=== PATIENT | male | born 1935 | race Caucasian/White ===

== ENCOUNTER 2017-09-12 10:45 | Emergency (ER) | payer OTHER, MEDICARE ==
--- NOTE | 2017-09-12 10:52 | EDPHY ---
H & P Stated Complaint: wednesday/st/chills/then developed l facial droop/paralysis Time Seen by Provider: 09/12/17 10:52 - Personal History Current Tetanus/Diphtheria Vaccine: Yes Tetanus Vaccine Date: < 10 YEARS - Medical/Surgical History Hx Asthma: No Hx Chronic Respiratory Disease: No Hx Diabetes: No Hx Cardiac Disease: No Hx Renal Disease: No Hx Cirrhosis: No Hx Alcoholism: No Hx HIV/AIDS: No Hx Splenectomy or Spleen Trauma: No Other PMH: KIDNEY STONES., hemmorhoids - Social History Smoking Status: Never smoked Constitutional: Initial Vital Signs Heart Rate 82 09/12/17 10:47 Respiratory Rate 18 09/12/17 10:47 Blood Pressure 151/93 H 09/12/17 10:47 O2 Sat (%) 98 09/12/17 10:47 O2 Delivery Mode Room Air Allergies/Adverse Reactions: No Known Allergies Allergy (Verified 09/12/17 10:47) Home Medications: Medication Instructions Recorded Valacyclovir HCl [Valtrex] 1,000 mg PO TID #21 tab 09/12/17 predniSONE 40 mg PO DAILY #14 tab 09/12/17 Medical Decision Making ED Course/Re-evaluation: CHIEF COMPLAINT: Left facial droop HISTORY OF PRESENT ILLNESS: The patient is an 82 y/o male with minimal medical history who presents with left facial droop progressing over the last 24 hours. He noticed chills on Wednesday, 2 days ago, and yesterday had a mild sore throat and slight blur of the vision in his left eye. Today he was playing tennis with his friend who noticed left facial droop. The patient also reports inability to close his left eyelid and mentions food getting stuck in the left side of his mouth this morning. He denies any weakness elsewhere, paresthesias, headache, speech difficulty, confusion, fever, recent trauma, or other complaints. REVIEW OF SYSTEMS: A 10 point review of systems was performed and is negative with the exception of the elements mentioned in the history of present illness. PHYSICAL EXAM: HR, BP, O2 Sat, RR. Temp noted General Appearance: Alert, well hydrated, appropriate, and non-toxic appearing. Asymmetry left facial droop. Head: Atraumatic without scalp tenderness or obvious injury Eyes: Pupils equal, round, reactive to light and accommodation, EOMI, no trauma , no injection. Unable to close left eyelid complete. Nose: Atraumatic, no rhinorrhea, clear. Throat: Mucus membranes moist. Neck: Supple, nontender, no lymphadenopathy. Respiratory: No retractions, no distress, no wheezes, and no accessory muscle use. Lungs are clear to auscultation bilaterally. Cardiovascular: Regular rate and rhythm, no murmurs, rubs, or gallops. Good capillary refill all extremities. Gastrointestinal: Abdomen is soft, nontender, non-distended, no masses, no rebound, no guarding, no peritoneal signs. Musculoskeletal: Normal active ROM of all extremities, atraumatic. Neurological: Alert, appropriate, and interactive. Faulkner's palsy phenomenon left side, unable to close left eyelid completely, left mouth droop. Otherwise nonfocal. Skin: No rashes, good turgor, no nodules on palpation. Past medical history: Hemorrhoids, kidney stones Past surgical history: Cataract surgery right eye 10 days ago Family history: Noncontributory Social history: Plays tennis 3x weekly. Friend at bedside. Lives in [place]. DIFFERENTIAL DIAGNOSIS: The differential diagnosis for the patient's neurologic deficits included but was not limited to Faulkner's Palsy, peripheral causes, central causes including CVA, TIA, electrolyte abnormalities and dehydration, cardiogenic causes, atypical causes like migraine syndrome. MEDICAL DECISION MAKING: This is a healthy 82 y/o male who presents with 24- hour history of progressing Faulkner's Palsy symptoms in the setting of recent sore throat/chills. Left facial motor deficits in eyelid, pupil, and mouth. Normal sensation. No extremities weakness or paresthesias. Exam is consistent with Faulkner 's Palsy. No indication for imaging. Plan for discharge with prednisone, valacyclovir, and Lacri-lube eyedrop instructions. He understands he needs to follow up with neurology later this week for recheck. Return precautions discussed. He is comfortable with this plan. Departure - Departure Disposition: Home, Routine, Self-Care Clinical Impression: Left-sided Faulkner's palsy Condition: Good Instructions: Prednisone (By mouth), Valacyclovir (By mouth), Faulkner Palsy (ED) Additional Instructions: 1. Take Valtrex as prescribed until you complete the prescription. This is an antiviral medication. 2. Take prednisone as prescribed for the next 7 days. 3. Use Lacri-Lube eye drops, available [id number], in your eye particularly at night to keep your eye moist. You can also use paper tape to close your lid at night (or during the day if more comfortable). 4. Follow up with neurologist this week for reevaluation. 5. Return to the ED for severe headache, weakness or numbness in your extremities, confusion, difficulty with speech, or other worsening of condition. Do not drive if your vision is affected. Referrals: Patient,NotPresent [Primary Care Provider] - As per Instructions Luis Diaz MD [Medical Doctor] - As per Instructions Prescriptions: predniSONE 40 mg PO DAILY #14 tab Valacyclovir HCl [Valtrex] 1,000 mg PO TID #21 tab Report Scribed for: Anjum Lawson Report Scribed by: Jaycee Pink Date of Report: 09/12/17 Time of Report: 10:54
[2017-09-12] MEDS ORDERED: valACYclovir 500 MG TAB PO ONE (11:00)
[2017-09-12] MEDS ORDERED: predniSONE 20 MG TAB PO ONE (11:02)
[2017-09-12 11:46] VITALS: BP 155/90; PULSE 80; RESP 16; O2SAT 96
== END 2017-09-12 11:49 | disposition home or self-care (01) ==
DX: G51.0 Bell's palsy (principal)
CPT/HCPCS: 99284; J7512